=== PATIENT | male | born 1975 | race Caucasian/White ===

== ENCOUNTER 2024-10-03 11:51 | Emergency (ER) | payer OTHER, SELFPAY ==
[2024-10-03 11:53] VITALS: BP 175/109
--- NOTE | 2024-10-03 13:09 | ED.GENMED ---
History of Present Illness
General
Chief Complaint: Extremity Pain (non-traumatic)
Time Seen by Provider: 10/03/24 12:54
History of Present Illness
History of Present Illness:
Patient is a 48-year-old male with history of hyperlipidemia, diabetes presenting to the emergency department with right lower extremity swelling. Patient states that he has had a DVT many years ago and it was provoked. It was in his right lower
extremity and it was localized to his foot. He states that 2 days ago he noticed an area of redness to the lateral aspect of his right foot and then yesterday it became more swollen. He has been having some chills. No fevers. No numbness
tingling. He is having some difficulty with walking. No trauma. No recent bug bites.
Past History
Past History
ED Past Medical History: Other (blood clot left leg, taking Xarelto)
ED Past Surgical History: Orthopedic
Social History
Tobacco: Non-smoker
Living: with roommate
Employment: Employed
Phy Exam
Physical Exam
Physical Exam:
GENERAL: in no acute distress
HEENT: normocephalic, extraocular movements intact, moist oral mucosa
NECK: normal inspection
RESPIRATORY: no respiratory distress, clear to auscultation bilaterally
CARDIOVASCULAR: regular rhythm tachycardic rate
EXTREMITIES: Right lower extremity with 2+ DP pulses, area of erythema and tenderness to the lateral aspect of the foot with associated swelling just to the foot
NEUROLOGIC: awake and alert, moves all extremities
SKIN: warm
Course
Orders/Labs/Results
Orders:
Orders
10/03/24 13:08
Venous Doppler Lwr Ext Rt [[facility] Venous LOWER Ext RT] Urgent
Comment:
Reason For Exam: leg swelling
10/03/24 13:10
Electrocardiogram (*1) Urgent
Reason for Study: Bradycardia / Tachycardia
EKG- Treatment ONCE
10/03/24 13:13
CR Foot - Right 2 Views Urgent
Comment:
Reason For Exam: foot pain
10/03/24 13:19
Basic Metabolic Panel Urgent
Complete Blood Count/With Diff Urgent
10/03/24 16:45
Cephalexin Monohydrate [Keflex] 500 mg PO NOW STA
Abnormal Lab Results
10/03/24
13:19
WBC 11.7 H 10^3/uL
(4.8-10.8)
Absolute Neuts (auto) 8.3 H 10^3/uL
(1.4-6.5)
Absolute Monos (auto) 1.3 H 10^3/uL
(0.1-0.6)
Lymphocytes % 17.3 L %
(20.5-51.1)
Monocytes % 10.7 H %
(1.7-9.3)
BUN 25 H mg/dl
(9-20)
Glucose 157 H mg/dl
(70-99)
10/03/24 13:19
10/03/24 13:19
Vital Signs
Initial and Last Documented VS:
Initial Vital Signs
Temp Pulse Resp BP Pulse Ox
98.6 F 108 16 175/109 96
10/03/24 11:53 10/03/24 11:53 10/03/24 11:53 10/03/24 11:53 10/03/24 11:53
Last Documented Vital Signs
Temp Pulse Resp BP Pulse Ox
98.1 F 89 16 134/84 97
10/03/24 13:44 10/03/24 16:00 10/03/24 16:00 10/03/24 16:00 10/03/24 16:00
MDM/Problems Addressed
Differential Diagnosis Includes:
Patient is a 48-year-old man presenting to the emergency department 2 days of foot pain swelling and chills. Vitals are notable for being tachycardic but he is afebrile. On exam there is a area of erythema edema warmth and tenderness to the
lateral aspect of the foot. Differential consists of cellulitis versus DVT versus fracture though less likely. Will check blood work EKG for the tachycardia and obtain ultrasound as well as an x-ray.
*Critical Care Note
Total Time (30-74mins, 75-104mins- exclusive of procedures): Not Applicable
Update Note
Update Note:
On reevaluation patient resting comfortably. His tachycardia has resolved. His white count is slightly elevated 11.7. BMP is otherwise normal. DVT study is negative. X-ray per my interpretation with no acute fracture. On reevaluations the
redness has remained about the same. Will treat for cellulitis. Will give first dose here. Patient educated on watching the area and strict return precautions given.
ED Attending Note
-
Portions of this chart may have been created with voice recognition software.� Occasional wrong word or��sound alike� substitutions may have occurred due to the inherent limitations of voice recognition software.
Discharge Plan
Departure
Patient Disposition: Home (Routine Discharge)
Date of Disposition: 10/03/24
Time of Disposition: 17:04
Patient with high blood pressure during this ER visit?: Yes
Discharge Problem:
Cellulitis
Instructions: Cellulitis (skin infection) in adults - ED discharge instructions
Prescriptions:
New
cephalexin 500 mg capsule
500 mg PO QID 7 Days Qty: 28 0RF
No Action
metformin 500 mg Tablet
500 mg PO BID
glimepiride 1 mg Tablet
1 mg PO DAILY
lisinopril 10 mg Tablet
5 mg PO DAILY
atorvastatin 40 mg Tablet
40 mg PO QPM 30 Days Qty: 30 0RF
acetaminophen 325 mg Tablet
650 mg PO Q4HPRN PRN (Reason: [place], mild pain, or temp >100.4F) Qty: 60 0RF
cyanocobalamin (vitamin B-12) 1,000 mcg Tablet
1,000 mcg PO DAILY 30 Days Qty: 30 0RF
aspirin 81 mg Tablet,Chewable
81 mg PO DAILY 30 Days Qty: 30 0RF
doxycycline monohydrate 100 mg capsule
100 mg PO BID Qty: 42 0RF
Referrals:
Rachael Barrow DO [Family Provider] -
Activity Restrictions/Additional Instructions:
You were seen in the Emergency Department today for a skin infection. Please take the antibiotics as prescribed. If you notice worsening redness, persistent fever or new skin changes or any new or worsening symptoms please come to the emergency
department for further evaluation.
We would like for you to follow up with your primary care physician for further evaluation. If you experience fever, worsening of your symptoms, or develop any other new or concerning symptoms, please return to the Emergency Department immediately.
Please see the attached sheet for additional information.
Interventions
Interventions:
*Risk Screen - Suicide Last Done: 10/03/24 13:24
*General Assessment Last Done: 10/03/24 13:23
*Neglect/Abuse Screening Last Done: 10/03/24 13:24
*ED COVID-19 Vaccine History Last Done: 10/03/24 13:23
ED-Skin Assessment Last Done: 10/03/24 13:25
ED-Peripheral Vascular Assessment Last Done: 10/03/24 13:25
ED-Musculoskeletal Assessment Last Done: 10/03/24 13:25
Discharge Date and Time
Print Language: PARAGUAYAN
[2024-10-03 13:21] VITALS: BMI 24.7
[2024-10-03 13:27] LABS: % Basophils 0.3 % (0-2); % Eosinophils 0.2 % (0-6); % Immature Granulocytes 0.3 % (0-0.5); % Lymphocytes 17.3 % (20.5-51.1); % Monocytes 10.7 % (1.7-9.3); % Neutrophils 71.2 % (42.2-75.2); Absolute Monocytes 1.3 10^3/uL (0.1-0.6); Absolute Neutrophils 8.3 10^3/uL (1.4-6.5); Hematocrit 45.1 % (39.0-52.0); Hemoglobin 15.4 g/dL (13.0-18.0); Mean Corp Hgb Conc. 34.1 g/dL (33.0-37.0); Mean Corpuscular Hgb 30.3 pg (27.0-31.0); Mean Corpuscular Volume 88.6 fL (80.0-94.0); Mean Platelet Volume 9.8 fL (7.4-10.4); Nucleated Red Blood Cells % 0 % (-); Platelet Count 163 10^3/uL (130-400); Red Blood Cell Count 5.09 10^6/uL (4.70-6.10); Red Cell Dist. Width 12.5 % (11.5-14.5); White Blood Cell Count 11.7 10^3/uL (4.8-10.8)
[2024-10-03 13:44] VITALS: BP 146/75
[2024-10-03 14:02] LABS: Blood Urea Nitrogen 25 mg/dl (9-20); Carbon Dioxide 25 mmol/L (22-30); Chloride 98 mmol/L (98-107); Estimated Creatinine Clearance > 125 ml/min; Glucose 157 mg/dl (70-99); Potassium 3.6 mmol/L (3.5-5.1); Sodium 136 mmol/L (135-145); eGFR > 60.00
[2024-10-03 16:00] VITALS: BP 134/84
[2024-10-03] MEDS: KEFLEX 500 MG PO (17:11)
== END 2024-10-03 17:32 | disposition home or self-care (01) ==
LOC: EMR 11:51
PROVIDERS: EMERGENCY PHYSICIAN Student in an Organized Health Care Education/Training Program; FAMILY PHYSICIAN Family Medicine
DX: L03.115 Cellulitis of right lower limb (principal); R68.83 Chills (without fever); M79.604 Pain in right leg; R60.0 Localized edema; M79.671 Pain in right foot; E11.9 Type 2 diabetes mellitus without complications; E78.5 Hyperlipidemia, unspecified; Z86.718 Personal history of other venous thrombosis and embolism; Z79.01 Long term (current) use of anticoagulants
CPT/HCPCS: 99284; 73620; 80048; 85025; 93005; 93971